=== PATIENT | male | born 1985 | race Caucasian/White ===

== ENCOUNTER 2016-09-18 16:19 | Emergency (ER) | payer SELFPAY ==
--- NOTE | 2016-09-21 12:11 | ER ---
ADMIT: 09/18/2016 RM/LOC: ER [facility] MR#: [id number] [facility] [address] [place], [place] [id number] [place] [address] [place] [address] Emergency Room Report SEX: M AGE: 31 : 1985 DATE: 09/18/2016 SUBJECTIVE: The patient is a 31-year-old, who presents to the emergency room from [employer]. He said he was feeling a little weak, kind of tired, and went to the nurse's station at work, and the nurse put a pulse oximetry meter on him and told him that he had irregular heart, that he needed to get seen right away. He got scared and came into the ER to get evaluated. He says unless I have a paper that says that I am okay to go back, I will not be let back to work. He denies any past medical history of any problem. He is very fit. His vitals are completely normal. Blood pressure 129/76, pulse 83, respirations 18, temperature is 97, O2 sats are 98%. He is not allergic nor take any medication. Physical examination; well nourished, well developed. All labs are normal. I did order basic labs; CBC, CMP, and a TSH. While visiting with him, his monitor does not show any arrhythmia. I offered him to give him a Holter monitor, he declined it. He is going to be released back to work. Instructions to hydrate, rest, appropriate sleeping, proper rest hydration, and follow up with Dr. Krishna for further care and evaluation. DIAGNOSIS: His diagnosis at this time is wellness exam secondary to weakness, all negative. LYNSEY Flanagan / Temo Poe MD / lucianal JOB #: [id number] CC: Temo Poe MD, Attending Physician Sam Krishna MD, Family Physician
== END 2016-09-18 18:30 | disposition home or self-care (01) ==
LOC: ER 16:19
DX: Z00.00 Encounter for general adult medical examination without abnormal findings (principal)